=== PATIENT | female | born 1995 | race Caucasian/White ===

== ENCOUNTER 2016-10-20 02:13 | Emergency (ER) | payer MEDICAID ==
--- NOTE | 2016-10-20 02:33 | EDPRACDOC ---
- General Information Stated Complaint: VAGINAL PAIN Home Medications: Home Medications Ciprofloxacin HCl [Cipro] 500 mg PO BID #20 tab 10/20/16 Fluticasone/Vilanterol [Breo Ellipta 100-25 Mcg INH] 1 inhaler PO DAILY Allergies/Adverse Reactions: Allergies Allergy/AdvReac Type Severity Reaction Status Date / Time pms formula dollar general Allergy Rash-Genera Uncoded 10/20/16 02:34 lized - History of Present Illness HPI: C/o yellow green vaginal d/c and lower abdo pain x 3-4 days. Denies fever, vaginal bleed, N/V/D, sob. LMP Sep 30-. No control. Med hx = asthma/ COPD. Surgical hx = none. Symptoms Started: Spontaneous Relevant History: Reports: Sexually Active, Known STD Contact (boyfrined also has penile d/c) Vaginal Discharge: Reports: Yellow Last Menstrual Period: Control Method: Reports: None Pain Severity: Mild Pruritis Severity: None Associated Signs & Symptoms: Reports: Vaginal Discharge ED Past Medical History - History Reviewed Yes Nurses notes reviewed and agree except as marked EDM Review of Systems - Review of Systems ROS Negative Except as Marked: Yes All systems reviewed and were negative except as marked Genitourinary: Vaginal Discharge - Physical Exam Constitutional: No apparent distress, Alert Oriented to: Time, Person, Place Last recorded Vital Signs: Oxygen Pulse Oxygen Saturation O2 Device Oxygen Flow Rate Fraction of Inspired Oxygen ( FIO2) - HEENT Head: Normal Eye Exam: negative: Conjunctival Injection, Scleral Icterus Oropharynx: negative: Drooling TMJ: Normal Nose: No Symptoms Reported Neck: Normal - Respiratory/Cardiovascular Respiratory: Normal - CTA Cardiovascular: Normal - GI Auscultation: Normal Tenderness: RLQ, LLQ, Suprapubic - Musculoskeletal Back: Normal Extremities: Normal - Integumentary Skin: Normal - Neurologic Mood Description: Normal Thought: Coherent Perception: Normal ED Vaginal Exam External: Normal Vaginal Exam: Normal Vaginal Discharge: Yellow, Thick Cervix: Discharge, Tenderness Uterus: Normal size Adnexa: Bilateral, Tenderness - Results 10/20/16 03:04 10/20/16 03:04 Decision Time to Discharge: 03:30 - Departure Condition: Stable Final Diagnosis: PID (acute pelvic inflammatory disease) UTI (urinary tract infection) Qualifiers: Urinary tract infection type: site unspecified Hematuria presence: without hematuria Qualified Code(s): N39.0 - Urinary tract infection, site not specified Instructions: Pelvic Inflammatory Disease (ED), Cervicitis (ED), Urinary Tract Infection in Women (ED), Dysuria Education/Counseling Given To: Patient Education/Counseling Given Regarding: Diagnosis, Treatment, Prognosis, Follow Up Referrals: None,No Provider [Primary Care Provider] - One Week Prescriptions: Ciprofloxacin HCl [Cipro] 500 mg PO BID #20 tab Additional Instructions: Follow up with [facility] for further evaluation of cervix. Return to ED for any new or worsening symptoms.
[2016-10-20 02:35] VITALS: TEMP 98; BMI 18.6
[2016-10-20 03:11] LABS: LEUKOCYTES/URINE 2+ (NEGATIVE); NITRITE/URINE NEG (NEGATIVE); URINE OCCULT BLOOD 1+ (NEG/TRACE); WBC/URINE TNTC (0-5)
[2016-10-20 03:16] LABS: AUTOMATED BASOPHIL 0.9 % (0-2); AUTOMATED EOSINOPHIL 1.8 % (0-5); AUTOMATED LYMPH 28.2 % (17-44); AUTOMATED MONOCYTE 10.1 % (3-10); MPV 9.6 fL (7.4-10.4)
[2016-10-20] MEDS ORDERED: AZITHROMYCIN 250 MG TAB PO ONE (03:28)
[2016-10-20] MEDS ORDERED: CEFTRIAXONE 250 MG in D5W 100 ML IV ONE (03:28)
[2016-10-20 03:29] LABS: BLOOD UREA NITROGEN 8 MG/DL (7-17); CALCIUM 9.2 MG/DL (8.4-10.2); CALCULATED OSMOLALITY 270 MOs/Kg (270-290); CHLORIDE 104 mEq/L (98-107); GLUCOSE 116 MG/DL (70-99); SODIUM LEVEL 141 mEq/L (137-146); TOTAL PROTEIN 7.2 G/DL (6.3-8.2)
[2016-10-20] MEDS ORDERED: CEFTRIAXONE 250 MG VIAL IM SCH (03:45)
[2016-10-20] MEDS ORDERED: LIDOCAINE 1% 2 ML (METHYLPARABEN FREE) ONE (03:58)
[2016-10-20 04:16] VITALS: BP 118/68; PULSE 92
[2016-10-24 09:31] LABS: GC BY NUCLEIC ACID AMP Negative (Negative)
[2016-10-24 09:32] LABS: CHLAMY BY NUCLEIC ACID AMP Positive (Negative)
== END 2016-10-20 04:15 | disposition home or self-care (01) ==
LOC: ED 02:13
DX: N73.9 Female pelvic inflammatory disease, unspecified (principal); N39.0 Urinary tract infection, site not specified
CPT/HCPCS: 36415; 80053; 81001; 81025; 85025; 87210; 87220; 87491; 87591; 96372; 99283; J0696; J2001; J3490; J7060